=== PATIENT | female | born 1945 | race American Indian/Alaskan Native ===

== ENCOUNTER 2017-01-11 07:39 | Emergency (ER) | payer MEDICARE ==
[2017-01-11 08:00] VITALS: BP 125/78
[2017-01-11] MEDS ORDERED: TYLENOL PO ONE (09:40)
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
== END 2017-01-11 10:24 | disposition home or self-care (01) ==
LOC: ED 07:39
DX: S29.012A Strain of muscle and tendon of back wall of thorax, initial encounter (principal); I10 Essential (primary) hypertension; J44.9 Chronic obstructive pulmonary disease, unspecified; F17.200 Nicotine dependence, unspecified, uncomplicated; Z88.0 Allergy status to penicillin; V49.9XXA Car occupant (driver) (passenger) injured in unspecified traffic accident, initial encounter; Y93.89 Activity, other specified; Y99.9 Unspecified external cause status; Y92.410 Unspecified street and highway as the place of occurrence of the external cause
CPT/HCPCS: 72070

== ENCOUNTER 2019-02-15 18:32 | Emergency (ER) | payer MEDICARE ==
--- NOTE | 2019-02-15 18:53 | Emergency Department Report ---
Blank Doc - Documentation Documentation: This is a 73-year-old female that presents with right ankle and foot pain. Un sure if she injured it. This initial assessment/diagnostic orders/clinical plan/treatment(s) is/are subject to change based on patient's health status, clinical progression and re- assessment by fellow clinical providers in the ED. Further treatment and workup at subsequent clinical providers discretion. Patient/guardians urged not to elope from the ED as their condition may be serious if not clinically assessed and managed. Initial orders include: 1- Patient sent to [facility] for further evaluation and treatment 2- xrays
--- NOTE | 2019-02-15 20:10 | XRay Report ---
PROCEDURE: XR ANKLE 3+V RT, XR FOOT 3+V RT TECHNIQUE: Right ankle radiographs, AP, lateral, and oblique views., Right foot 3 HISTORY: pain , no known injury COMPARISONS: None . FINDINGS: Region of pain is not demarcated. Fracture (s) and/or Dislocation(s): None . Alignment: Normal . Joint space(s): Normal . Soft tissues: Soft tissue swelling inferior to the lateral malleolus. . Bone mineralization: Diffusely osteopenic. Periosteal reaction fourth metatarsal shaft. Foreign bodies: None . Calcaneal spurring: None . Arterial calcification. IMPRESSION: No acute fracture or dislocation identified. Global osteopenia. Periosteal reaction of the fourth metatarsal shaft may be a stress response. This document is electronically signed by Saniya Yi MD., February 15 2019 08:09:08 PM ET
[2019-02-15] MEDS ORDERED: NORCO 5/325 PO STA (22:58)
--- NOTE | 2019-02-15 23:04 | Emergency Department Report ---
ED General Adult HPI - General Chief complaint: Extremity Injury, Lower Stated complaint: LT FOOT PAIN Time Seen by Provider: 02/15/19 18:52 Source: patient Mode of arrival: Wheelchair Limitations: No Limitations - History of Present Illness Initial comments: 73-year-old -[place] female with past medical history of osteoporosis and arthritis presents from urgent department complaining of atraumatic right foot pain. Pain is to the mid foot was kind of radiates up to the right ankle, worse with ambulation and palpation. She cannot recall an actual injury. Denies any fever, chills, bleeding, pustular discharge lacerations. She reports she may have had a gout flareup several years ago. No nausea or vomiting, no chest pain, palpitations, no fever, chills, sweats. Location: lower extremity Radiation: non-radiation, extremity Quality: aching, dull Improves with: none Worsens with: none Associated Symptoms: denies: confusion, chest pain, diaphoresis, fever/chills, loss of appetite, malaise, nausea/vomiting, rash, shortness of breath - Related Data Previous Rx's Medication Instructions Recorded Last Taken Type Cyclobenzaprine [Flexeril] 10 mg PO TID PRN #20 tablet 01/11/17 Unknown Rx Ibuprofen [Motrin] 600 mg PO Q8H PRN #20 tablet 01/11/17 Unknown Rx Indomethacin [Indocin] 25 mg PO Q8H #20 capsule 02/15/19 Unknown Rx Allergies Allergy/AdvReac Type Severity Reaction Status Date / Time morphine AdvReac Dizziness Verified 02/15/19 18:33 Penicillins AdvReac Swelling Verified 02/15/19 18:33 ED Review of Systems ROS: Stated complaint: LT FOOT PAIN Other details as noted in HPI Constitutional: denies: chills, fever Eyes: denies: eye pain, eye discharge, vision change ENT: denies: ear pain, throat pain Respiratory: denies: cough, shortness of breath, wheezing Cardiovascular: denies: chest pain, palpitations Endocrine: no symptoms reported Gastrointestinal: denies: abdominal pain, nausea, diarrhea Genitourinary: denies: urgency, dysuria, discharge Musculoskeletal: joint swelling, arthralgia. denies: back pain Skin: denies: rash, lesions Neurological: denies: headache, weakness, paresthesias Psychiatric: denies: anxiety, depression Hematological/Lymphatic: denies: easy bleeding, easy bruising ED Past Medical Hx - Past Medical History Hx Hypertension: Yes Hx COPD: Yes - Surgical History Hx Appendectomy: Yes Additional Surgical History: hemorrhoidectomy, tonsil - Social History Smoking Status: Never Smoker Substance Use Type: None - Medications Home Medications: Home Medications Medication Instructions Recorded Confirmed Last Taken Type Cyclobenzaprine [Flexeril] 10 mg PO TID PRN #20 tablet 01/11/17 Unknown Rx Ibuprofen [Motrin] 600 mg PO Q8H PRN #20 tablet 01/11/17 Unknown Rx Indomethacin [Indocin] 25 mg PO Q8H #20 capsule 02/15/19 Unknown Rx ED Physical Exam - General Limitations: No Limitations General appearance: alert, in no apparent distress - Head Head exam: Present: atraumatic, normocephalic - Eye Eye exam: Present: normal appearance, PERRL, EOMI Pupils: Present: normal accommodation - ENT ENT exam: Present: normal exam, mucous membranes moist, TM's normal bilaterally - Neck Neck exam: Present: normal inspection, full ROM - Respiratory Respiratory exam: Present: normal lung sounds bilaterally. Absent: respiratory distress, wheezes, rales, chest wall tenderness, accessory muscle use - Cardiovascular Cardiovascular Exam: Present: regular rate, normal rhythm. Absent: systolic murmur, diastolic murmur, rubs, gallop - GI/Abdominal GI/Abdominal exam: Present: soft, normal bowel sounds. Absent: tenderness, guarding, rebound - Extremities Exam Extremities exam: Present: normal inspection, full ROM, tenderness, normal capillary refill - Expanded Lower Extremity Exam Right Foot/Toe exam: Present: tenderness (there is tenderness along the area of the fourth metatarsals and up to the medial to lateral tarsals.), swelling. Absent: laceration, ecchymosis, deformity, puncture wound, calcaneal tenderness, tenderness at base of 5th metatarsal, nail avulsion Neuro vascular tendon exam: Present: no vascular compromise - Back Exam Back exam: Present: normal inspection, full ROM. Absent: CVA tenderness (R), CVA tenderness (L), muscle spasm, paraspinal tenderness, vertebral tenderness - Neurological Exam Neurological exam: Present: alert, oriented X3, CN II-XII intact, normal gait - Psychiatric Psychiatric exam: Present: normal affect, normal mood. Absent: anxious, flat affect, manic - Skin Skin exam: Present: warm, dry, intact, normal color. Absent: rash, cyanosis, diaphoretic, erythema, petechiae, pallor, abrasion, ecchymosis ED Course Vital Signs 02/15/19 18:53 Temperature 99.3 F Pulse Rate 43 L Respiratory 18 Rate Blood Pressure 122/58 O2 Sat by Pulse 97 Oximetry ED Medical Decision Making - Radiology Data Radiology results: report reviewed (x-ray of foot shows periosteal reaction to the fourth metatarsal shafts possibly a stress response) - Medical Decision Making 73-year-old -[place] female process Mr. department spontaneous foot pain reports having had a history of a gout flareup of the pain and swelling is related to the ankle as well. X-ray shows periosteal reaction. No signs of an infectious process or CVA fracture. May be secondary to prolonged arthritis/gout. Arthritis/80 a healing/resolving stress fracture. Critical care attestation.: If time is entered above; I have spent that time in minutes in the direct care of this critically ill patient, excluding procedure time. ED Disposition Clinical Impression: Foot swelling, Foot pain, right Disposition: DC-01 TO HOME OR SELFCARE Is pt being admited?: No Does the pt Need Aspirin: No Condition: Stable Instructions: Arthralgia (ED), Osteoarthritis (ED), Acute Gouty Arthritis (ED) Referrals: PRIMARY CARE, [Primary Care Provider] - 3-5 Days KIMBERLY WONG DPM [Staff Physician] - 3-5 Days DORI ALVA MD [Staff Physician] - 3-5 Days
[2019-02-16 00:01] VITALS: BP 107/49
== END 2019-02-15 23:42 | disposition home or self-care (01) ==
LOC: ED 18:32
DX: M10.071 Idiopathic gout, right ankle and foot (principal); I10 Essential (primary) hypertension; J44.9 Chronic obstructive pulmonary disease, unspecified; M79.89 Other specified soft tissue disorders; Z79.1 Long term (current) use of non-steroidal anti-inflammatories (NSAID); Z88.5 Allergy status to narcotic agent; Z88.0 Allergy status to penicillin; Z98.890 Other specified postprocedural states; Z90.49 Acquired absence of other specified parts of digestive tract
CPT/HCPCS: 99283